=== PATIENT | female | born 1985 | race Caucasian/White ===

== ENCOUNTER 2016-12-19 18:07 | Emergency (ER) | payer SELFPAY ==
[2016-12-19 18:13] VITALS: BP 110/71; TEMP 98.3
--- NOTE | 2016-12-19 18:20 | C.PDOC ---
History Of Present Illness 31 year old female presents to ED with complaints of right ear pain since yesterday. Today pain persists and reports decreased hearing. Denies fever, injury, drainage, foreign body sensation. Time Seen by Provider: 12/19/16 18:14 Chief Complaint (Nursing): ENT Problem History Per: Patient History/Exam Limitations: None Onset/Duration Of Symptoms: Days Current Symptoms Are (Timing): Still Present Past Medical History Reviewed: Historical Data, Nursing Documentation, Vital Signs Vital Signs: Last Vital Signs Temp 98.3 F 12/19/16 18:12 Pulse 96 H 12/19/16 18:12 Resp 17 12/19/16 18:12 BP 110/71 12/19/16 18:12 Pulse Ox 97 12/19/16 18:21 - Medical History PMH: No Chronic Diseases Surgical History: No Surg Hx Family History: States: Unknown Family Hx - Social History Hx Alcohol Use: No Hx Substance Use: No - Immunization History Hx Tetanus Toxoid Vaccination: No Hx Influenza Vaccination: No Hx Pneumococcal Vaccination: No Review Of Systems Constitutional: Negative for: Fever, Chills ENT: Positive for: Ear Pain. Negative for: Throat Pain Cardiovascular: Negative for: Chest Pain, Palpitations Respiratory: Negative for: Cough, Shortness of Breath Gastrointestinal: Negative for: Vomiting, Abdominal Pain, Diarrhea Genitourinary: Negative for: Dysuria Skin: Negative for: Rash Neurological: Negative for: Headache Physical Exam - Physical Exam Appears: Non-toxic, No Acute Distress Skin: Warm, Dry, No Rash Head: Atraumatic, Normacephalic Eye(s): bilateral: Normal Inspection, PERRL, EOMI Ear(s): Left: Normal, Right: TM Erythema, Bilateral: Other (no hearing impairment) Nose: Normal, No Flaring, No Discharge Oral Mucosa: Moist Tongue: Normal Appearing Lips: Normal Appearing, No Swelling Teeth: Normal Dentition Gingiva: Normal Appearing, No Bleeding Throat: Normal, No Erythema, No Exudate, No Drooling Neck: Normal ROM Chest: Symmetrical Cardiovascular: Rhythm Regular Respiratory: Normal Breath Sounds, No Wheezing Extremity: Bilateral: Atraumatic, Normal ROM Neurological/Psych: Oriented x3, Normal Speech Gait: Steady ED Course And Treatment O2 Sat by Pulse Oximetry: 97 Medical Decision Making Medical Decision Making: Patient with acute right ear and exam consistent with OM. Recommend motrin or tylenol for pain and will discharge with Rx. Recommend follow up with ENT if symptoms persist Disposition Counseled Patient/Family Regarding: Need For Followup, Rx Given - Disposition Referrals: Denver Hoffman MD [Staff Provider] - Disposition: HOME/ ROUTINE Disposition Time: 18:17 Condition: STABLE Additional Instructions: Take Tylenol or Motrin alternating every 4-6 hours for Fever 100.4F or higher. Take antibiotic twice daily. Follow up with your primary medical doctor or clinic in 2-5 days for further evaluation. Prescriptions: Amoxicillin 875 mg PO BID #14 tablet Instructions: Otitis Media (ED) Forms: [employer] (Polish) - POA Present On Arrival: None - Clinical Impression Clinical Impression: Otitis media
[2016-12-19 18:52] VITALS: PULSE 79; RESP 18; O2SAT 98
== END 2016-12-19 18:50 | disposition home or self-care (01) ==
LOC: C.ER 18:07
DX: H66.91 Otitis media, unspecified, right ear (principal)